=== PATIENT | female | born 1975 | race Caucasian/White ===

== ENCOUNTER 2017-03-31 14:37 | Emergency (ER) | payer OTHER ==
[~2017-03-31] VITALS: Ht 160 cm; Wt 64.6 kg
[~2017-03-31 14:37] MED LIST: IBUP-1542 PO; Lanolin TOP
[2017-03-31 14:42] VITALS: Ht 160 cm; Wt 64.6 kg
[2017-03-31] MEDS ORDERED: ONDANSETRON 4 MG INJ IV STA (15:01)
[2017-03-31] MEDS ORDERED: morphine 4 MG/ML VIAL IV STA (15:01)
[2017-03-31] MEDS ORDERED: SOD CHLORIDE 0.9% 1,000 ML IV STA (15:01)
--- NOTE | 2017-03-31 15:06 | ERD ---
ER Documentation Chief Complaint Date/Time DATE: 03/31/17 TIME: 15:04 Chief Complaint lower abdominal pain HPI Patient is a 42-year-old female who states that in March she had a Pap smear and there was an abnormal concerning finding although she does not know what it was and was told to get a biopsy. On 28 March she went to have the biopsy however they are unable to perform it because patient states supposedly she was supposed to take a pill a few hours before getting the biopsy however she was never given this pill so she never took it and the doctor doing the biopsy was unable to perform the test. Patient is complaining of bilateral pelvic pain worse on the right side. She denies any nausea or vomiting or diarrhea. She admits to dysuria and increased urinary frequency. Denies any bleeding. Denies any recent unprotected sex ROS All systems reviewed and are negative except as per history of present illness. Medications Home Meds Active Scripts Hydrocodone/Acetaminophen ([place] 5-325 Tablet) 1 Each Tablet, 1 TAB PO Q6H Y for PAIN, #20 TAB Prov:ASAD BURNS PA-C 03/31/17 Ibuprofen* (Ibuprofen*) 600 Mg Tablet, 600 MG PO Q6H Y for q6, #30 TAB Prov:ASAD BURNS PA-C 03/31/17 Metronidazole* (Flagyl*) 500 Mg Tablet, 500 MG PO TID for 5 Days, TAB Prov:ASAD BURNS PA-C 03/31/17 Ciprofloxacin Hcl* (Ciprofloxacin Hcl*) 500 Mg Tablet, 500 MG PO BID for 5 Days , TAB Prov:ASAD BURNS PA-C 03/31/17 Ibuprofen* (Motrin*) 600 Mg Tab, 600 MG PO Q6 for 10 Days, TAB Prov:ALLISON SANCHEZ MD 09/19/14 [Lanolin] 1 APPLIC OINT No Conflict Check, 1 APPLIC TOP BEDSIDE MEDICATION Y for BEDSIDE FOR KATRINA TO NIPPLES, #1 Prov:ALLISON SANCHEZ MD 09/19/14 Allergies Allergies: Coded Allergies: No Known Allergy (Unverified , 04/23/15) PMhx/Soc History of Surgery: No Anesthesia Reaction: No Hx Neurological Disorder: No Hx Respiratory Disorders: No Hx Cardiac Disorders: No Hx Psychiatric Problems: No Hx Miscellaneous Medical Probl: No Hx Alcohol Use: No Hx Substance Use: No Hx Tobacco Use: No FmHx Family History: No diabetes Physical Exam Vitals Vital Signs Date Time Temp Pulse Resp B/P Pulse Ox O2 Delivery O2 Flow Rate FiO2 03/31/17 14:42 98.8 83 18 115/58 97 Physical Exam General: well developed, well nourished, alert, nontoxic, no distress Head: normocephalic, atraumatic Neck: Supple, nontender, no lymphadenopathy, no midline tenderness Respiratory: Clear to auscaultation bilaterally, speaks in full sentences, no use of accesory muscles or labored breathing, no rales, ronchi, or wheezing Cardiovascular: RRR, No murmurs GI: soft, bilateral lower quadrant tenderness, non distended, negative murphys sign, positive mcburneys point tenderness, no cva tenderness bilaterally, no rebound or guarding Back: no midline tenderness, no step offs or bony abnormalities, sensation to light touch in tact Result Diagram: 03/31/17 1510 03/31/17 1510 Results 24 hrs Laboratory Tests Test 03/31/17 15:10 03/31/17 15:11 White Blood Count 10.210^3/ul Red Blood Count 4.3610^6/ul Hemoglobin 13.9g/dl Hematocrit 39.3% Mean Corpuscular Volume 90.1fl Mean Corpuscular Hemoglobin 31.9pg Mean Corpuscular Hemoglobin Concent 35.4g/dl Red Cell Distribution Width 11.8% Platelet Count 92834^3/UL Mean Platelet Volume 9.1fl Neutrophils % 72.8% Lymphocytes % 15.6% Monocytes % 9.2% Eosinophils % 1.2% Basophils % 0.5% Nucleated Red Blood Cells % 0.0/100WBC Neutrophils # 7.410^3/ul Lymphocytes # 1.610^3/ul Monocytes # 0.910^3/ul Eosinophils # 0.110^3/ul Basophils # 0.110^3/ul Nucleated Red Blood Cells # 0.010^3/ul Sodium Level 139mmol/L Potassium Level 4.1mmol/L Chloride Level 101mmol/L Carbon Dioxide Level 30mmol/L Anion Gap 12 Blood Urea Nitrogen 14mg/dl Creatinine 0.78mg/dl Glucose Level 95mg/dl Calcium Level 9.5mg/dl Total Bilirubin 0.2mg/dl Direct Bilirubin 0.00mg/dl Indirect Bilirubin 0.2mg/dl Aspartate Amino Transf (AST/SGOT) 23IU/L Alanine Aminotransferase (ALT/SGPT) 37IU/L Alkaline Phosphatase 73IU/L Total Protein 7.7g/dl Albumin 4.8g/dl Globulin 2.90g/dl Albumin/Globulin Ratio 1.65 Lipase 112U/L Urine Color YELLOW Urine Clarity SLIGHTLY CLOUDY Urine pH 6.0 Urine Specific [place] 1.026 Urine Ketones TRACEmg/dL Urine Nitrite NEGATIVEmg/dL Urine Bilirubin NEGATIVEmg/dL Urine Urobilinogen NEGATIVEmg/dL Urine Leukocyte Esterase TRACELeu/ul Urine Microscopic RBC 37/HPF Urine Microscopic WBC 4/HPF Urine Squamous Epithelial Cells MODERATE/HPF Urine Mucus FEW/HPF Urine Hemoglobin 2+mg/dL Urine Glucose NEGATIVEmg/dL Urine Total Protein 1+mg/dl Current Medications Medications (Trade) Dose Ordered Sig/Saul Route PRN Reason Start Time Stop Time Status Last Admin Dose Admin Sodium Chloride (NS) 1,000 ml @ 1,000 mls/hr Q1H STAT IV 03/31/17 15:01 03/31/17 16:00 DC 03/31/17 15:20 Morphine Sulfate (morphine) 4 mg ONCE STAT IV 03/31/17 15:01 03/31/17 15:04 DC 03/31/17 15:18 Ondansetron HCl (Zofran Inj) 4 mg ONCE STAT IV 03/31/17 15:01 03/31/17 15:04 DC 03/31/17 15:18 Procedures/MDM 42-year-old presents with pelvic pain. Her vital signs are within normal limits and she is well-appearing on no distress but she does have tenderness in the bilateral lower quadrants particularly on the right side. Therefore I will begin a workup to rule out appendicitis, ovarian torsion, or any other emergent etiology for her symptoms. She was given IV fluids, Zofran, and morphine for pain. Abdominal labs as well as CT and pelvic ultrasound ordered. CBC and chemistry panel were unremarkable. Urine does show evidence of infection.ct shows: 1. No acute inflammatory process within the abdomen or pelvis seen on this noncontrast examination. 2. No evidence for nephroureterolithiasis. 3. Normal unenhanced appearance of the appendix. 4. Myomatous uterus, better evaluated on the ultrasound from the same day. US shows : 1. No acute inflammatory process within the abdomen or pelvis seen on this noncontrast examination. 2. No evidence for nephroureterolithiasis. 3. Normal unenhanced appearance of the appendix. 4. Myomatous uterus, better evaluated on the ultrasound from the same day. Patient discharged with Cipro Flagyl and pain medications as well as copies of everything so she can follow with primary care. Recommended this patient follow up with her primary care doctor within 48 hours or return to the emergency room for any worsening of symptoms. However this time I do believe there is suitable for outpatient management. I answered all their questions and they agreed with the plan and were discharged home. Departure Diagnosis: Primary Impression: Adenomyosis Additional Impression: Cystitis Condition: Stable ASAD BURNS PA-C Mar 31, 2017 15:06
[2017-03-31 15:27] LABS: BASOPHIL # 0.1 10^3/ul (0.0-0.1); BASOPHILS % 0.5 % (0.0-2.0); EOSINOPHILS # 0.1 10^3/ul (0.0-0.5); EOSINOPHILS % 1.2 % (0.0-7.0); HEMATOCRIT 39.3 % (37.0-47.0); HEMOGLOBIN 13.9 g/dl (12.0-16.0); LYMPHOCYTES # 1.6 10^3/ul (0.8-2.9); LYMPHOCYTES % 15.6 % (15.0-51.0); MEAN CORPUSCULAR HEMOGLOBIN 31.9 pg (29.0-33.0); MEAN CORPUSCULAR HGB CONC 35.4 g/dl (32.0-37.0); MEAN CORPUSCULAR VOLUME 90.1 fl (82.0-101.0); MEAN PLATELET VOLUME 9.1 fl (7.4-10.4); MONOCYTE # 0.9 10^3/ul (0.3-0.9); MONOCYTES % 9.2 % (0.0-11.0); NEUTROPHIL # 7.4 10^3/ul (1.6-7.5); NEUTROPHILS % 72.8 % (39.0-77.0); PLATELET COUNT 314 10^3/UL (140-415); RED BLOOD COUNT 4.36 10^6/ul (4.20-5.40); RED CELL DISTRIBUTION WIDTH 11.8 % (11.5-14.5); WHITE BLOOD COUNT 10.2 10^3/ul (4.8-10.8)
[2017-03-31 15:46] LABS: ALBUMIN 4.8 g/dl (3.3-4.9); ALBUMIN/GLOBULIN RATIO 1.65; BILIRUBIN,INDIRECT 0.2 mg/dl (0-1.1); BILIRUBIN,TOTAL 0.2 mg/dl (0.2-1.3); CALCIUM 9.5 mg/dl (8.4-10.2); CREATININE 0.78 mg/dl (0.44-1.00); POTASSIUM 4.1 mmol/L (3.5-5.1); TOTAL PROTEIN 7.7 g/dl (6.1-8.1)
[2017-03-31 15:49] LABS: ADD UMIC YES; UR ASCORBIC ACID 20 mg/dL (NEGATIVE); UR BILIRUBIN (Dip) NEGATIVE (NEGATIVE); UR BLOOD (Dip) 2+ mg/dL (NEGATIVE); UR CLARITY SLIGHTLY CLOUDY (CLEAR); UR COLOR YELLOW (YELLOW); UR GLUCOSE (Dip) NEGATIVE (NEGATIVE); UR KETONES (Dip) TRACE mg/dL (NEGATIVE); UR LEUKOCYTE ESTERASE (Dip) TRACE Leu/ul (NEGATIVE); UR MUCUS FEW /HPF (NONE SEEN); UR NITRITE (Dip) NEGATIVE (NEGATIVE); UR RBC 37 /HPF (0-5); UR SPECIFIC GRAVITY (Dip) 1.026 (1.003-1.030); UR SQUAMOUS EPITHELIAL CELL MODERATE /HPF (FEW); UR TOTAL PROTEIN (Dip) 1+ mg/dl (NEGATIVE); UR UROBILINOGEN (Dip) NEGATIVE (NEGATIVE)
[2017-03-31 15:50] LABS: ADD SCAN DIFF NO
--- NOTE | 2017-03-31 16:20 | RADRPT ---
PROCEDURE: CT Abdomen and Pelvis without contrast. CLINICAL INDICATION: Abdominal pain TECHNIQUE: CT scan of the abdomen and pelvis without contrast was performed. The patient was scann ed without intravenous contrast. Coronal and sagittal reformatted images were obtained from the axi al source images. Use of iterative reconstruction technique was employed. Images were reviewed on a high-resolution PACS workstation. images. The calculated radiation dose measures 500.17 mGy centimet ers. The CTDI measures 8.86 mGy. One or more of the following dose reduction techniques were used: - Automated exposure control. - Adjustment of the mA and/or kV according to patient size . - Use of iterative reconstruction technique. Images were reviewed on a high-resolution PACS workstation COMPARISON: Correlation with ultrasound from the same day FINDINGS: CT abdomen: The lung bases are clear. The heart size is normal, without pericardial thickening or effusion. Th e liver is normal in size and density without focal mass or intrahepatic biliary dilatation. The sp trini is normal in size and homogeneous in density. The stomach is partially collapsed, but is gross ly unremarkable. The pancreas as visualized is normal. The gallbladder and biliary tree are unrem arkable and there is no evidence for biliary dilatation. The adrenal glands are symmetric and tiffanie l. The kidneys are symmetrically unremarkable as well. No renal calculus or obstructive uropathy o r mass lesion is seen. The aorta is of normal caliber. There is no retroperitoneal lymphadenopathy. The cedrick hepatis re gion is clear. The bowel and mesentery, as visualized, are equally unremarkable. CT pelvis: The small bowel loops situated within the pelvis are unremarkable. The uterus is mildly enlarged griffith ggesting a myomatous uterus. The pelvic sidewalls and inguinal regions are clear. The sigmoid colo n and rectum are remarkable for sigmoid diverticulosis. No mass, lymphadenopathy, or free fluid is seen. No acute inflammation is seen. The surrounding osseous structures are intact. No osteolytic or osteoblastic lesion is detected. IMPRESSION: 1. No acute inflammatory process within the abdomen or pelvis seen on this noncontrast examination. 2. No evidence for nephroureterolithiasis. 3. Normal unenhanced appearance of the appendix. 4. Myomatous uterus, better evaluated on the ultrasound from the same day. RPTAT: PP .James Walker MD, MD Date Time Electronically viewed and signed by .James Walker MD, MD on 03/31/2017 16:19 .d/
--- NOTE | 2017-03-31 16:28 | RADRPT ---
PROCEDURE: US Pelvis CLINICAL INDICATION: r/q tendernes TECHNIQUE: Multiple sonographic images of the pelvis were obtained utilizing a transabdominal and endovaginal technique. The images were reviewed on a PACS workstation. COMPARISON: Pelvic ultrasound from 12/11/2014 LMP: 03/19/2017 FINDINGS: The uterus measures 9.9 x 5.4 x 7.3 cm. The endometrial echo complex measures 6 mm in thickness. T he uterus is heterogeneous and the junctional zone between the endometrium and myometrium is indisti nct. There is a 2.6 cm anterior intramural fibroid at the level of the upper body. The right ovary measures 4.2 x 2.3 x 2.9 cm. The left ovary measures 3.4 x 1.9 x 2.5 cm. There is no rmal vascular flow in both ovaries. No significant ovarian lesions are seen. No significant pelvic free fluid is identified. IMPRESSION: 2.6 cm uterine fibroid. The uterus is heterogeneous and the junctional zone between the endometrium and myometrium is indist inct. Clinical correlation for adenomyosis is recommended. No evidence of ovarian torsion. RPTAT: EE Physician Andi Date Time Electronically viewed and signed by Physician Andi on 03/31/2017 16:28 /
[2017-03-31] MEDS ORDERED: CIPR500T4 PO (16:33)
[2017-03-31] MEDS ORDERED: METR500T PO (16:33)
[2017-03-31] MEDS ORDERED: IBUP-1542 PO (16:36)
[2017-03-31] MEDS ORDERED: HYDR-906 PO (16:36)
== END 2017-03-31 16:47 | disposition home or self-care (01) ==
LOC: FTE 14:37
DX: N80.0 Endometriosis of uterus (principal); N30.90 Cystitis, unspecified without hematuria
CPT/HCPCS: 36415; 74176; 76830; 76856; 80053; 81001; 83690; 85025; 96374; 96375; J2270; J2405; J7030; Z7502

== ENCOUNTER 2017-05-28 19:03 | Emergency (ER) | payer OTHER ==
[~2017-05-28] VITALS: Wt 59.0 kg
[~2017-05-28 19:03] MED LIST changes: +CIPR500T4 PO; +HYDR-906 PO; +METR500T PO
[2017-05-28] MEDS ORDERED: HYDR-906 PO (22:19)
--- NOTE | 2017-05-28 22:34 | ERD ---
ER Documentation Chief Complaint Date/Time DATE: 05/28/17 TIME: 22:28 Chief Complaint PELVIC PAIN RADIATING TO BACK. HX FIBROIDS HPI 42-year-old female presents here in emergency department for refill of pain medications patient was seen here 1 month ago for the same problem, was complaining of pelvic pain and was diagnosed of fibroids, patient already has a scheduled appointment with gynecology specialist, is scheduling of surgery, appointment is not until next week because her appointment got canceled last week. Patient denies any new symptoms. Patient denies any fever or chills per patient denies any hematuria or dysuria. Patient's vaginal bleeding is controlled and has been taking hormones prescribed to her. Patient describes the pain as pelvic pain cramping pain 4/10 scale. Patient denies any new symptoms. ROS All systems reviewed and are negative except as per history of present illness. Medications Home Meds Active Scripts Hydrocodone/Acetaminophen ([place] 5-325 Tablet) 1 Each Tablet, 1 TAB PO Q6H Y for SEVERE PAIN LEVEL 7-10, #20 TAB Prov:MATT CAMARGO NP 05/28/17 Hydrocodone/Acetaminophen ([place] 5-325 Tablet) 1 Each Tablet, 1 TAB PO Q6H Y for PAIN, #20 TAB Prov:ASAD BURNS PA-C 03/31/17 Ibuprofen* (Ibuprofen*) 600 Mg Tablet, 600 MG PO Q6H Y for q6, #30 TAB Prov:ASAD BURNS PA-C 03/31/17 Metronidazole* (Flagyl*) 500 Mg Tablet, 500 MG PO TID for 5 Days, TAB Prov:ASAD BURNS PA-C 03/31/17 Ciprofloxacin Hcl* (Ciprofloxacin Hcl*) 500 Mg Tablet, 500 MG PO BID for 5 Days , TAB Prov:ASAD BURNS PA-C 03/31/17 Ibuprofen* (Motrin*) 600 Mg Tab, 600 MG PO Q6 for 10 Days, TAB Prov:ALLISON SANCHEZ MD 09/19/14 [Lanolin] 1 APPLIC OINT No Conflict Check, 1 APPLIC TOP BEDSIDE MEDICATION Y for BEDSIDE FOR [place] TO NIPPLES, #1 Prov:ALLISON SANCHEZ MD 09/19/14 Allergies Allergies: Coded Allergies: No Known Allergy (Unverified , 05/28/17) PMhx/Soc Medical and Surgical Hx: pt denies Medical Hx, pt denies Surgical Hx History of Surgery: No Anesthesia Reaction: No Hx Neurological Disorder: No Hx Respiratory Disorders: No Hx Cardiac Disorders: No Hx Psychiatric Problems: No Hx Miscellaneous Medical Probl: No Hx Alcohol Use: No Hx Substance Use: No Hx Tobacco Use: No Smoking Status: Never smoker FmHx Family History: No coronary disease, No diabetes, No other Physical Exam Vitals Vital Signs Date Time Temp Pulse Resp B/P Pulse Ox O2 Delivery O2 Flow Rate FiO2 05/28/17 21:59 98.1 68 20 105/69 98 Physical Exam GENERAL: The patient is well developed and appropriate for usual state of health, in no apparent distress. CHEST: Clear to auscultation bilaterally. There are no rales, wheezes or rhonchi. HEART: Regular rate and rhythm. No murmurs, clicks, rubs or gallops. No S3 or S4. ABDOMEN: Soft, nontender and nondistended. Good bowel sounds. No rebound or guarding. No gross peritonitis. No gross organomegaly or masses. No Barnes sign or McBurney point tenderness. BACK: No midline or flank tenderness. EXTREMITIES: Equal pulses bilaterally. There is no peripheral clubbing, cyanosis or edema. No focal swelling or erythema. Full range of motion. Grossly neurovascularly intact. NEURO: Alert and oriented. Cranial nerves 2-12 intact. Motor strength in all 4 extremities with 5/5 strength. Sensation grossly intact. Normal speech and gait. SKIN: There is no apparent rash or petechia. The skin is warm and dry. HEMATOLOGIC AND LYMPHATIC: There is no evidence of excessive bruising or lymphedema. No gross cervical, axillary, or inguinal lymphadenopathy. Results 24 hrs PROCEDURE: CT Abdomen and Pelvis without contrast. CLINICAL INDICATION: Abdominal pain TECHNIQUE: CT scan of the abdomen and pelvis without contrast was performed. The patient was scanned without intravenous contrast. Coronal and sagittal reformatted images were obtained from the axial source images. Use of iterative reconstruction technique was employed. Images were reviewed on a high- resolution PACS workstation. images. The calculated radiation dose measures 500.17 mGy centimeters. The CTDI measures 8.86 mGy. One or more of the following dose reduction techniques were used: - Automated exposure control. - Adjustment of the mA and/or kV according to patient size . - Use of iterative reconstruction technique. Images were reviewed on a high-resolution PACS workstation COMPARISON: Correlation with ultrasound from the same day FINDINGS: CT abdomen: The lung bases are clear. The heart size is normal, without pericardial thickening or effusion. The liver is normal in size and density without focal mass or intrahepatic biliary dilatation. The spleen is normal in size and homogeneous in density. The stomach is partially collapsed, but is grossly unremarkable. The pancreas as visualized is normal. The gallbladder and biliary tree are unremarkable and there is no evidence for biliary dilatation. The adrenal glands are symmetric and normal. The kidneys are symmetrically unremarkable as well. No renal calculus or obstructive uropathy or mass lesion is seen. The aorta is of normal caliber. There is no retroperitoneal lymphadenopathy. The cedrick hepatis region is clear. The bowel and mesentery, as visualized, are equally unremarkable. CT pelvis: The small bowel loops situated within the pelvis are unremarkable. The uterus is mildly enlarged suggesting a myomatous uterus. The pelvic sidewalls and inguinal regions are clear. The sigmoid colon and rectum are remarkable for sigmoid diverticulosis. No mass, lymphadenopathy, or free fluid is seen. No acute inflammation is seen. The surrounding osseous structures are intact. No osteolytic or osteoblastic lesion is detected. IMPRESSION: 1. No acute inflammatory process within the abdomen or pelvis seen on this noncontrast examination. 2. No evidence for nephroureterolithiasis. 3. Normal unenhanced appearance of the appendix. 4. Myomatous uterus, better evaluated on the ultrasound from the same day. RPTAT: PP .James Walker MD, MD Date Time Electronically viewed and signed by .James Walker MD, MD on 03/31/2017 16:19 .d/ PROCEDURE: US Pelvis CLINICAL INDICATION: r/q tendernes TECHNIQUE: Multiple sonographic images of the pelvis were obtained utilizing a transabdominal and endovaginal technique. The images were reviewed on a PACS workstation. COMPARISON: Pelvic ultrasound from 12/11/2014 LMP: 03/19/2017 FINDINGS: The uterus measures 9.9 x 5.4 x 7.3 cm. The endometrial echo complex measures 6 mm in thickness. The uterus is heterogeneous and the junctional zone between the endometrium and myometrium is indistinct. There is a 2.6 cm anterior intramural fibroid at the level of the upper body. The right ovary measures 4.2 x 2.3 x 2.9 cm. The left ovary measures 3.4 x 1.9 x 2.5 cm. There is normal vascular flow in both ovaries. No significant ovarian lesions are seen. No significant pelvic free fluid is identified. IMPRESSION: 2.6 cm uterine fibroid. The uterus is heterogeneous and the junctional zone between the endometrium and myometrium is indistinct. Clinical correlation for adenomyosis is recommended. No evidence of ovarian torsion. RPTAT: EE Physician Andi Date Time Electronically viewed and signed by Serge Walsh Physician on 03/31/2017 16:28 Procedures/MDM Medical Decision Making: Symptoms of pelvic pain most like is from her fibroids , patient states that the pain is chronic, it has not changed from last time, patient denies any fever or chills, patient denies any new symptoms. Patient has a scheduled appointment with her solutions architect specialist and will have a surgery, she is here today for possible refill of pain medication since she ran out of [employer] which helped last time. There is low suspicion for abdominal emergencies at this time. Patients abdominal exam is normal at this time. repeat testing is not indicated at this time. There is low suspicion for appendicitis, cholecystitis, abdominal aortic aneurysms or peritonitis at this time. There is low suspicion for sepsis. Patient appears well and is hemodynamically stable. Disposition: Home. Condition: Stable Prescription norco Instructions: Patient is advised to take medications as prescribed. Patient is advised to rest, increase fluid intake and do see gynecology specialist as per appointment, return to emergency department for high fever, or any new symptoms. Patient is advised that if symptoms are worse, severe abdominal pain, uncontrolled vomiting, high fever, severe flank pain, worst signs and symptoms, to return to the emergency department immediately. Otherwise, patient can follow up with primary care doctor in 5-7 days. Departure Diagnosis: Primary Impression: Chronic pain Chronic pain type: other chronic pain Qualified Code: G89.29 - Other chronic pain Additional Impression: Fibroids Uterine leiomyoma location: unspecified location Qualified Code: D25.9 - Uterine leiomyoma, unspecified location Condition: Stable Patient Instructions: Uterine Fibroids Additional Instructions: see OB doctor as per appt, return for fever, new symptoms, vomiting or any worsening s/s MATT CAMARGO NP May 28, 2017 22:34
== END 2017-05-28 22:32 | disposition home or self-care (01) ==
LOC: FTE 19:03
DX: G89.29 Other chronic pain (principal); D25.9 Leiomyoma of uterus, unspecified
CPT/HCPCS: 99283